=== PATIENT | female | born 1945 | race Two or more races ===

== ENCOUNTER 2024-10-21 19:46 | Emergency (ER) | payer OTHER, MEDICAID ==
[~2024-10-21] VITALS: Ht 165.1 cm; Wt 77.1 kg
[2024-10-21] MEDS ORDERED: MAG HYDROX/AL HYDROX/SIMETH 30 ML UDC ONE (20:39)
[2024-10-21] MEDS ORDERED: FAMOTIDINE/PF INJ 20 MG/2 ML VIAL IV ONE (20:40)
[2024-10-21] MEDS ORDERED: ENALAPRILAT INJ (1.25 MG/ML) 1.25 MG/ML VIAL IV ONE (20:40)
[2024-10-21] MEDS: FAMOTIDINE/PF INJ 20 MG/2 ML VIAL IV ONE (20:49)
[2024-10-21] MEDS: MAG HYDROX/AL HYDROX/SIMETH 30 ML UDC PO ONE (20:49)
[2024-10-21] MEDS: ENALAPRILAT DIHYD. (2.5MG/2ML) 1.25 MG/ML VIAL IV ONE (20:49)
[2024-10-21 20:51] LABS: BASOPHILS # (AUTO) 0.1 K/uL (0.0-0.2); BASOPHILS % (AUTO) 0.9 % (0.0-2.0); EOSINOPHILS % (AUTO) 0.1 % (0.0-6.0); HEMATOCRIT 35 % (33-45); HEMOGLOBIN 11.9 g/dL (11.5-14.8); LYMPHOCYTES # (AUTO) 1.2 K/uL (0.8-4.8); LYMPHOCYTES % (AUTO) 15.7 % (20.0-44.0); MEAN CORPUSCULAR HEMOGLOBIN 29 PG (26.0-33.0); MEAN CORPUSCULAR HGB CONC 34 g/dl (31.0-36.0); MEAN CORPUSCULAR VOLUME 85 fL (82-100); MONOCYTES # (AUTO) 0.6 K/uL (0.1-1.30); NEUTROPHILS # (AUTO) 5.6 K/uL (1.8-8.9); NEUTROPHILS % (AUTO) 75.3 % (43.0-81.0); PLATELET COUNT (AUTO) 285 K/uL (150-450); RED BLOOD CELL COUNT(AUTO) 4.09 MIL/uL (4.0-5.2); RED CELL DISTRIBUTION WIDTH 14.6 % (11.5-15.0); WHITE BLOOD COUNT (AUTO) 7.5 K/uL (4.3-11.0)
[2024-10-21 21:02] LABS: CALCIUM, SERUM 9.6 mg/dL (8.5-10.1); CARBON DIOXIDE 28 mmol/L (21-32); CHLORIDE 94 mmol/L (98-107); CREATININE 0.9 mg/dL (0.6-1.3); GLUCOSE 113 mg/dL (74-106); POTASSIUM 4.3 mmol/L (3.5-5.1); SODIUM SERUM 129 mmol/L (136-145); UREA NITROGEN, BLOOD 14 mg/dL (7-18)
[2024-10-21 21:07] LABS: ALANINE AMINOTRANSFERASE 14 U/L (12-78); ALBUMIN 3.9 g/dL (3.4-5.0); ALKALINE PHOSPHATASE 119 U/L (46-116); ASPARTATE AMINOTRANSFERASE 16 U/L (15-37); BILIRUBIN,DIRECT 0.1 mg/dL (0.0-0.2); BILIRUBIN,TOTAL 0.6 mg/dL (0.2-1.0); TOTAL PROTEIN, SERUM 7.9 g/dL (6.4-8.2)
[2024-10-21] MEDS ORDERED: hydrALAZINE HCL IV 20 MG VIAL ONE (22:35)
[2024-10-21] MEDS: IV NS 0.9% 250 ML BAG IV ONE (23:09)
[2024-10-21] MEDS: hydrALAZINE HCL IV 20 MG VIAL IV ONE (23:10)
[2024-10-21 23:44] VITALS: BP 157/71; TEMP 98; O2SAT 100
== END 2024-10-21 23:44 | disposition home or self-care (01) ==
LOC: ER 20:09
DX: E87.1 Hypo-osmolality and hyponatremia (principal); I11.0 Hypertensive heart disease with heart failure; I50.9 Heart failure, unspecified
CPT/HCPCS: 99285; 96374; 96375; 93005; 71045; 85025; 80048; 83690; 80076; 36415; 84484 ×2; J0360; J1308; J7050; J3490

== ENCOUNTER 2024-12-19 17:42 | Emergency (ER) | payer OTHER, MEDICAID ==
[~2024-12-19] VITALS: Ht 160 cm; Wt 90.7 kg
[2024-12-19] MEDS ORDERED: hydrALAZINE HCL IV 20 MG VIAL ONE (18:48)
[2024-12-19] MEDS ORDERED: MAG HYDROX/AL HYDROX/SIMETH 30 ML UDC ONE (18:49)
[2024-12-19] MEDS ORDERED: ONDANSETRON HCL/PF 4 MG/2 ML VIAL ONE (18:49)
[2024-12-19] MEDS: PANTOPRAZOLE 40 MG VIAL IV ONE (18:49)
[2024-12-19] MEDS ORDERED: PANTOPRAZOLE 40 MG VIAL ONE (18:49)
[2024-12-19] MEDS ORDERED: LIDOCAINE VISCOUS 2% UD 15 ML UDC ONE (18:49)
[2024-12-19] MEDS: hydrALAZINE HCL IV 20 MG VIAL IV ONE (18:49)
[2024-12-19] MEDS: LIDOCAINE VISCOUS 2% UD 15 ML UDC MM ONE (18:50)
[2024-12-19] MEDS: ONDANSETRON HCL/PF 4 MG/2 ML VIAL IVP ONE (18:50)
[2024-12-19] MEDS: MAG HYDROX/AL HYDROX/SIMETH 30 ML UDC PO ONE (18:50)
[2024-12-19 18:55] LABS: BASOPHILS # (AUTO) 0.1 K/uL (0.0-0.2); BASOPHILS % (AUTO) 0.8 % (0.0-2.0); HEMATOCRIT 35 % (33-45); HEMOGLOBIN 11.5 g/dL (11.5-14.8); LYMPHOCYTES # (AUTO) 1.1 K/uL (0.8-4.8); MEAN CORPUSCULAR HEMOGLOBIN 29 PG (26.0-33.0); MEAN CORPUSCULAR HGB CONC 33 g/dl (31.0-36.0); MEAN CORPUSCULAR VOLUME 86 fL (82-100); MONOCYTES # (AUTO) 0.4 K/uL (0.1-1.30); MONOCYTES % (AUTO) 6.1 % (2.0-12.0); NEUTROPHILS # (AUTO) 5.6 K/uL (1.8-8.9); NEUTROPHILS % (AUTO) 78.1 % (43.0-81.0); PLATELET COUNT (AUTO) 282 K/uL (150-450); RED BLOOD CELL COUNT(AUTO) 4.02 MIL/uL (4.0-5.2); RED CELL DISTRIBUTION WIDTH 13.5 % (11.5-15.0); WHITE BLOOD COUNT (AUTO) 7.2 K/uL (4.3-11.0)
[2024-12-19 19:11] LABS: CALCIUM, SERUM 9.1 mg/dL (8.5-10.1); CARBON DIOXIDE 26 mmol/L (21-32); CHLORIDE 103 mmol/L (98-107); GLUCOSE 111 mg/dL (74-106); POTASSIUM 4.1 mmol/L (3.5-5.1); SODIUM SERUM 136 mmol/L (136-145); UREA NITROGEN, BLOOD 16 mg/dL (7-18)
[2024-12-19 19:18] LABS: ALANINE AMINOTRANSFERASE 15 U/L (12-78); ALBUMIN 3.3 g/dL (3.4-5.0); ALKALINE PHOSPHATASE 104 U/L (46-116); BILIRUBIN,DIRECT 0.1 mg/dL (0.0-0.2); BILIRUBIN,TOTAL 0.5 mg/dL (0.2-1.0); LIPASE 35 U/L (16-77); TOTAL PROTEIN, SERUM 7.5 g/dL (6.4-8.2)
[2024-12-19] MEDS ORDERED: DABI150C PO (19:29)
[2024-12-19] MEDS ORDERED: ASPI-1420 PO (19:29)
[2024-12-19] MEDS ORDERED: FURO20TA4 PO (19:29)
[2024-12-19] MEDS ORDERED: CLON0.1T PO (19:29)
[2024-12-19] MEDS ORDERED: CALC-1143 PO (19:29)
[2024-12-19] MEDS ORDERED: CYAN100096 PO (19:29)
[2024-12-19] MEDS ORDERED: ATOR80TA PO (19:29)
[2024-12-19] MEDS ORDERED: FOLI0.8T3 PO (19:29)
[2024-12-19] MEDS ORDERED: LOSA50TA39 PO (19:29)
[2024-12-19] MEDS ORDERED: METH2.5T PO (19:29)
[2024-12-19] MEDS ORDERED: SULF500T46 PO (19:29)
[2024-12-19] MEDS ORDERED: LABE100T5 PO (19:29)
[2024-12-19] MEDS ORDERED: ACET325T53 PO (19:29)
[2024-12-19 19:40] LABS: ASPARTATE AMINOTRANSFERASE 13 U/L (15-37)
[2024-12-19 20:23] VITALS: BP 140/88; TEMP 97.7; O2SAT 96
== END 2024-12-19 20:23 | disposition home or self-care (01) ==
LOC: ER 17:54
DX: I11.0 Hypertensive heart disease with heart failure (principal); I50.9 Heart failure, unspecified; K21.9 Gastro-esophageal reflux disease without esophagitis; Z79.02 Long term (current) use of antithrombotics/antiplatelets; Z79.82 Long term (current) use of aspirin; Z79.899 Other long term (current) drug therapy
CPT/HCPCS: 99285; 96374; 96375; 71045; 93005; 85025; 80048; 83690; 80076; 36415; J0360; J2405; J2470

== ENCOUNTER 2025-02-02 12:18 | Emergency (ER) | payer OTHER, MEDICAID ==
[~2025-02-02] VITALS: Ht 154.9 cm; Wt 65.8 kg
[~2025-02-02 12:18] MED LIST: ACET325T53 PO; ASPI-1420 PO; ATOR80TA PO; CALC-1143 PO; CLON0.1T PO; CYAN100096 PO; DABI150C PO; FOLI0.8T3 PO; FURO20TA4 PO; LABE100T5 PO; LOSA50TA39 PO; METH2.5T PO; SULF500T46 PO
[2025-02-02] MEDS ORDERED: OLANZAPINE 10 MG VIAL IM ONE (12:42)
[2025-02-02] MEDS: OLANZAPINE 10 MG VIAL IM ONE (12:50)
[2025-02-02 13:08] LABS: CALCIUM, SERUM 9.2 mg/dL (8.5-10.1); CREATININE 0.9 mg/dL (0.6-1.3); SODIUM SERUM 135 mmol/L (136-145); UREA NITROGEN, BLOOD 11 mg/dL (7-18)
[2025-02-02 13:11] LABS: PLATELET COUNT (AUTO) 285 K/uL (150-450); RED BLOOD CELL COUNT(AUTO) 4.49 MIL/uL (4.0-5.2); RED CELL DISTRIBUTION WIDTH 12.9 % (11.5-15.0); WHITE BLOOD COUNT (AUTO) 7.6 K/uL (4.3-11.0)
[2025-02-02 13:13] LABS: ASPARTATE AMINOTRANSFERASE 15 U/L (15-37); TOTAL PROTEIN, SERUM 7.9 g/dL (6.4-8.2)
[2025-02-02 13:14] LABS: ALCOHOL, BLOOD < 3 mg/dL (0-10)
[2025-02-02 13:38] LABS: APPEARANCE,URINE CLEAR (CLEAR); BLOOD, URINE TRACE-INTA Ery/uL (NEGATIVE); LEUKOCYTE ESTERASE ,URINE NEGATIVE (NEGATIVE); NITRITE, URINE NEGATIVE (NEGATIVE); UGLUCOSE NEGATIVE (NEGATIVE)
[2025-02-02 13:39] LABS: AMPHETAMINE, URINE NEGATIVE (NEGATIVE); BARBITURATE, URINE NEGATIVE (NEGATIVE); BENZODIAZEPINE, URINE NEGATIVE (NEGATIVE); CANNABINOID, URINE NEGATIVE (NEGATIVE); COCCAINE, URINE NEGATIVE (NEGATIVE); OPIATE, URINE NEGATIVE (NEGATIVE)
[2025-02-02 13:45] LABS: ADD URINE CULTURE NO; SQUAMOUS EPITHELIAL CELL,UR Few /HPF (None Seen)
[2025-02-02] MEDS ORDERED: hydrALAZINE HCL IV 20 MG VIAL ONE ×2 (13:47→18:11)
[2025-02-02] MEDS: hydrALAZINE HCL IV 20 MG VIAL IV ONE ×2 (13:56→18:22)
[2025-02-02] MEDS ORDERED: OLAN5TAB3 PO (18:03)
[2025-02-02 19:39] VITALS: BP 140/80; O2SAT 97
== END 2025-02-02 19:35 | disposition home or self-care (01) ==
LOC: ER 12:26
DX: I11.0 Hypertensive heart disease with heart failure (principal); I50.9 Heart failure, unspecified; R45.6 Violent behavior; Z79.01 Long term (current) use of anticoagulants; Z79.82 Long term (current) use of aspirin; Z79.899 Other long term (current) drug therapy; Z20.822 Contact with and (suspected) exposure to COVID-19
CPT/HCPCS: 99285; 96372; 96374; 96375; 93005; 71045; 85025; 80048; 80076; 81001; 36415; 84484; 87426; 80143; 80320; 80307; J0360 ×2; J3490; G0480